=== PATIENT | female | born 1950 | race Two or more races ===

== ENCOUNTER 2021-11-17 08:36 | Outpatient (CLI) | payer OTHER | END 2021-11-17 08:48 | disposition home or self-care (01) | LOC: MRI 08:36 | PROVIDERS: ATTEND Internal Medicine Hematology & Oncology | DX: C25.0 Malignant neoplasm of head of pancreas (principal) | CPT/HCPCS: 72196 ==

== ENCOUNTER 2021-12-02 07:42 | Outpatient (CLI) | payer OTHER | END 2021-12-02 07:43 | disposition home or self-care (01) | LOC: NUCLEAR 07:42 | PROVIDERS: ATTEND Internal Medicine Hematology & Oncology | DX: C20 Malignant neoplasm of rectum (principal) | CPT/HCPCS: 78812; A9552 ==

== ENCOUNTER 2022-03-22 08:47 | Outpatient (CLI) | payer OTHER | END 2022-03-22 09:00 | disposition home or self-care (01) | LOC: TOM 08:47 | PROVIDERS: ATTEND Internal Medicine Hematology & Oncology | DX: C20 Malignant neoplasm of rectum (principal) ==

== ENCOUNTER → 2022-10-03 | Outpatient (CLI) | payer OTHER | END | disposition home or self-care (01) | LOC: MRI 10:15 | PROVIDERS: ATTEND General Practice | DX: C20 Malignant neoplasm of rectum (principal) | CPT/HCPCS: 72196 ==